=== PATIENT | male | born 1945 | race Caucasian/White ===

== ENCOUNTER 2018-02-03 08:31 | Day surgery (SDC) | payer OTHER, BC ==
[2018-02-02 15:16] LABS: Absolute Lymphocytes (CBC) 1.5 K/uL (0.7-4.9); Absolute Monocytes 0.7 K/uL (0.1-1.3); Absolute Neutrophil 6.1 K/uL (1.8-8.0); Basophils % 0.4 % (0-1.3); Eosinophils % 1.1 % (0-4.4); Hematocrit 43.3 % (39.6-49.0); Lymphocytes % 17.5 % (15.3-44.8); MCH 32.6 pg (27.0-35.0); MCV 92.9 fL (80-100); MPV 9.7 fL (7.6-11.3); Monocytes % 8.7 % (3.3-12.3); RBC Red Blood Cell Count 4.66 M/uL (4.33-5.43)
[2018-02-02 16:06] LABS: Potassium 4.6 mEq/L (3.6-5.0)
[2018-02-03] MEDS ORDERED: NA CHLORIDE 0.9% 500 ML ONE (08:38)
[2018-02-03] MEDS ORDERED: LIDOCAINE 1% 20 ML MDV ONE (09:43)
[2018-02-03] MEDS ORDERED: FENTANYL CITR 100 MCG/2 ML ONE (09:56)
[2018-02-03] MEDS ORDERED: MIDAZOLAM HCL 2 MG/2 ML INJ ONE (09:56)
[2018-02-03] MEDS ORDERED: ATROPINE SULF 1 MG/10 ML SYR IV ONE (09:56)
[2018-02-03] MEDS ORDERED: NA CHLORIDE 0.9% 50 ML ONE (09:56)
[2018-02-03] MEDS ORDERED: PRASUGREL (EFFIENT) 10 MG TAB ONE (10:21)
[2018-02-03] MEDS ORDERED: NA CHLORIDE 0.9% 1,000 ML IV SCH (13:00)
[2018-02-03] MEDS ORDERED: Morphine 2 MG/2 ML SYR IV PRN (13:19)
[2018-02-03] MEDS ORDERED: ZOLPIDEM TARTRATE 10 MG TABLET PO PRN (13:19)
[2018-02-03] MEDS ORDERED: NITROGLYCERIN 0.4 MG/TAB SL PRN (14:00)
[2018-02-03] MEDS ORDERED: ACETAMINOPHEN 325 MG TABLET PO PRN (14:00)
[2018-02-03 18:26] VITALS: BMI 26.6
[2018-02-03 19:44] VITALS: O2SAT 98
[2018-02-03] MEDS ORDERED: ATORVASTATIN 80 MG TAB PO SCH (21:00)
[2018-02-04 05:55] LABS: Absolute Lymphocytes (CBC) 1.6 K/uL (0.7-4.9); Absolute Monocytes 0.6 K/uL (0.1-1.3); Absolute Neutrophil 4.6 K/uL (1.8-8.0); Basophils % 0.5 % (0-1.3); Eosinophils % 1.8 % (0-4.4); Hematocrit 40.1 % (39.6-49.0); Lymphocytes % 22.7 % (15.3-44.8); MCH 32.7 pg (27.0-35.0); MCV 93.1 fL (80-100); MPV 9.4 fL (7.6-11.3); RBC Red Blood Cell Count 4.31 M/uL (4.33-5.43)
[2018-02-04 08:09] VITALS: BP 123/76
[2018-02-04 08:45] VITALS: TEMP 97
[2018-02-04] MEDS ORDERED: ASPIRIN 81 MG CHEWABLE TABLET PO SCH (09:00)
[2018-02-04] MEDS ORDERED: PRASUGREL (EFFIENT) 10 MG TAB PO SCH (09:00)
--- NOTE | 2018-02-04 11:25 | OP ---
Surgeon: Jose Trinidad MD Shift Superintendent: Nisreen Bourgeois. Procedure: Left heart catheterization with primary stent of the proximal and mid LAD. Description Of Procedure: Mr. Arias is a 72-year-old male. He came into the office with chest araceli n and abnormal Cardiolite was set up for an outpatient heart catheterization today. He was brought i [facility]to the [facility] as an outpatient, prepped and draped in the routine sterile fashion given 2 mg of Ve rsed for IV sedation. A 6-Marshallese sheath was introduced in the right common femoral artery. Angio-Se al was used to close the case. Angiography using the left Dionne and the right Dionne 6-Marshallese cat heters showed a normal RCA and circumflex, but he had 2 stenoses in the LAD, 70-80% proximal and mid. An XBLAD 3.5 with side hole as a guide was used. A [place] wire was used to cross the lesions. A 2 .5 x 12 and a 3.0 x 12 Synergy stent were used to stent the mid and the proximal stenosis of the LAD respectively. There were 0% residual, AMANUEL-3 flow and no thrombosis and no acute closure. The patie nt tolerated the procedure well. There were no complications. Blood loss was 5 cc. Total conscious sedation was 45 minutes. Final diagnosis is CAD status post proximal and mid LAD stent successfully primary. Impression And Plan: The patient received 60 of Effient during the procedure. He will be sent home eventually on aspirin, Effient, Lipitor 80 mg daily. He will go home tomorrow morning and see me in the office in about 2 weeks. SHAISTA/MARILEE Voice ID: [id number] Report ID: [id number]
--- NOTE | 2018-02-04 15:40 | EKG ---
Test Date: 2018-02-04 Test Time: 09:50:31 Banner Painter: RACHEL MEASUREMENT RESULTS: Intervals: Rate: 87 NH: 166 QRSD: 88 QT: 368 QTc: 442 Cook: P: 51 NH: 166 QRS: 31 T: 43 INTERPRETIVE STATEMENTS: Normal sinus rhythm Normal ECG Compared to ECG 10/18/2006 13:06:36 No significant changes Electronically Signed On 02-04-18 15:39:21 CDT by Ric Corley
== END 2018-02-04 11:00 | disposition home or self-care (01) ==
LOC: CCL 08:31 → 4TH 10:30 → CCL 02-04 11:00
PROC: B201YZZ Plain Radiography of Multiple Coronary Arteries using Other Contrast (ICD-10-PCS; principal; 2018-02-03)
PROC: 027034Z Dilation of Coronary Artery, One Artery with Drug-eluting Intraluminal Device, Percutaneous Approach (ICD-10-PCS; 2018-02-03)
DX: I25.110 Atherosclerotic heart disease of native coronary artery with unstable angina pectoris (principal); I10 Essential (primary) hypertension; E78.2 Mixed hyperlipidemia; K21.9 Gastro-esophageal reflux disease without esophagitis; Z82.49 Family history of ischemic heart disease and other diseases of the circulatory system
CPT/HCPCS: 36415 ×2; 80048 ×2; 80061; 85025 ×2; 85347 ×2; 85610; 85730; 93005; 93454; C1760; C1877; C9600; J0583; J2250; J3010; J7030; 93458; C1725; C1893